=== PATIENT | male | born 1930 | race Caucasian/White ===

== ENCOUNTER 2016-07-06 10:21 | Emergency (ER) | payer MEDICARE, OTHER ==
[2016-04-22 21:02] VITALS: BMI 25.8
[~2016-07-06 10:21] MED LIST: ALDACTONE25 MG PO; ASPIRIN81 MG PO; HCTZ25 MG PO; LIPITOR80 MG PO; NORVASC5 MG PO; OMEPRAZOLE20 M1 PO; PLAVIX75 MG PO; PRINIVIL10 MG PO; XANAX0.25 MG PO
[2016-07-06 11:00] LABS: BASOPHILS 0.2 % (0.0-2.0); EOSINOPHILS 0.8 % (0-7); HEMATOCRIT 45.5 % (42.0-54.0); HEMOGLOBIN 14.3 g/dL (13.5-17.5); IMMATURE GRANULOCYTES 0.2 % (0-5); LYMPHOCYTES 43.2 % (15-50); MCH 28.7 pg (26.0-34.0); MCHC 31.4 g/dL (31.0-37.0); MCV 91.4 fL (80.0-100.0); MEAN PLATELET VOLUME 10.8 fL (7.4-10.4); MONOCYTES 4.7 % (2-11); NEUTROPHILS 50.9 % (40-80); PLATELET COUNT 140 10x3/uL (130-400); RBC 4.98 10x6/uL (4.20-6.10); RDW 14.7 % (11.5-14.5)
[2016-07-06 11:12] LABS: ALBUMIN 3.8 g/dL (3.4-5.0); ANION GAP 8.1 mmol/L (8-16); BILIRUBIN - TOTAL 1.4 mg/dL (0.2-1.3); CALCIUM 8.7 mg/dL (8.5-10.1); CARBON DIOXIDE 33.5 mmol/L (21.0-32.0); CREATININE - SERUM 1.7 mg/dL (0.6-1.3); POTASSIUM - SERUM 3.6 mmol/L (3.5-5.1)
[2016-07-06 11:21] LABS: TROPONIN-I 0.053 ng/mL (0.000-0.060)
[2016-07-06 13:51] LABS: APTT 36.8 SECONDS (22.8-39.4); INR 1.27 (0.85-1.17); PROTIME 15.8 SECONDS (11.6-15.0)
[2016-07-06 16:20] LABS: PROTEIN - BODY FLUID 2.7 G/DL
[2016-07-06 16:21] LABS: TRIGLYCERIDE - BODY FLUID 4 mg/dL
[2016-07-06 18:08] LABS: LYMPH - BF 87 %; MACROPHAGES BF 5 %; MESOTHELIALS BF 6 %; NEUT - BF 2 %
[2016-07-07 17:13] LABS: AFB SPECIMEN PROCESSING Concentration (())
[2016-07-08 12:19] LABS: FUNGUS STAIN Final report (())
[2016-08-03 11:18] LABS: FUNGUS MYCOLOGY CULTURE Final report (())
[2016-08-29 13:13] LABS: ACID FAST CULTURE Negative (()); ACID FAST SMEAR Negative (())
== END 2016-07-06 15:40 | disposition home or self-care (01) ==
LOC: D.ER 10:21
PROVIDERS: Emergency Medicine; Radiology Vascular & Interventional Radiology
DX: R06.00 Dyspnea, unspecified (principal); I50.9 Heart failure, unspecified; J90 Pleural effusion, not elsewhere classified; Z95.1 Presence of aortocoronary bypass graft; I25.10 Atherosclerotic heart disease of native coronary artery without angina pectoris; I45.10 Unspecified right bundle-branch block

== ENCOUNTER → 2016-07-06 17:11 | Outpatient (CLI) | payer MEDICARE, OTHER ==
[2016-04-22 21:02] VITALS: BMI 25.8
== END | disposition home or self-care (01) ==
LOC: D.RAD 17:11
DX: J90 Pleural effusion, not elsewhere classified (principal)

== ENCOUNTER 2016-08-10 12:46 | Emergency (ER) | payer MEDICARE, OTHER ==
[2016-04-22 21:02] VITALS: BMI 25.8
[2016-08-10 14:16] LABS: CKMB 7.7 U/L (0.0-3.6); TROPONIN-I 0.025 ng/mL (0.000-0.060)
[2016-08-10 16:17] LABS: BASOPHILS 0.2 % (0.0-2.0); EOSINOPHILS 0.6 % (0-7); HEMOGLOBIN 14.4 g/dL (13.5-17.5); IMMATURE GRANULOCYTES 0.2 % (0-5); LYMPHOCYTES 28.4 % (15-50); MCH 27.8 pg (26.0-34.0); MCHC 31.3 g/dL (31.0-37.0); MCV 88.8 fL (80.0-100.0); MEAN PLATELET VOLUME 11.4 fL (7.4-10.4); MONOCYTES 4.4 % (2-11); NEUTROPHILS 66.2 % (40-80); PLATELET COUNT 123 10x3/uL (130-400); RBC 5.18 10x6/uL (4.20-6.10); RDW 15.6 % (11.5-14.5); WBC 8.3 10x3/uL (4.8-10.8)
[2016-08-10 16:29] LABS: ANION GAP 16.1 mmol/L (8-16); BILIRUBIN - TOTAL 1.26 mg/dL (0.2-1.3); CALCIUM 9.1 mg/dL (8.5-10.1); CARBON DIOXIDE 25.9 mmol/L (21.0-32.0); CREATININE - SERUM 1.7 mg/dL (0.6-1.3); INR 1.2 (0.85-1.17); PROTEIN - SERUM 7.4 g/dL (6.4-8.2); PROTIME 15.1 SECONDS (11.6-15.0)
== END 2016-08-10 18:10 | disposition home or self-care (01) ==
LOC: D.ER 12:46
PROVIDERS: Emergency Medicine; Nurse Practitioner Family
DX: S20.219A Contusion of unspecified front wall of thorax, initial encounter (principal); V49.9XXA Car occupant (driver) (passenger) injured in unspecified traffic accident, initial encounter; Y93.89 Activity, other specified; Y92.410 Unspecified street and highway as the place of occurrence of the external cause; S16.1XXA Strain of muscle, fascia and tendon at neck level, initial encounter; S29.012A Strain of muscle and tendon of back wall of thorax, initial encounter; I45.10 Unspecified right bundle-branch block; Z95.1 Presence of aortocoronary bypass graft

== ENCOUNTER → 2017-02-10 14:46 | Outpatient (CLI) | payer MEDICARE, OTHER ==
[2016-04-22 21:02] VITALS: BMI 25.8
== END | disposition home or self-care (01) ==
LOC: D.MRI 01-27 10:00
DX: M54.2 Cervicalgia (principal)

== ENCOUNTER → 2017-03-15 11:11 | Outpatient (CLI) | payer MEDICARE, OTHER ==
[2016-04-22 21:02] VITALS: BMI 25.8
== END | disposition home or self-care (01) ==
LOC: D.MRI 11:11
DX: M54.2 Cervicalgia (principal)

== ENCOUNTER 2017-04-10 13:41 | Inpatient (IN) | payer MEDICARE, OTHER ==
[2017-04-10 16:11] LABS: BASOPHILS 0.1 % (0-2); EOSINOPHILS 0.1 % (0-7); HEMATOCRIT 48.6 % (42.0-54.0); HEMOGLOBIN 16.1 g/dL (13.5-17.5); IMMATURE GRANULOCYTES 0.3 % (0-5); LYMPHOCYTES 24.7 % (15-50); MCHC 33.1 g/dL (31.0-37.0); MCV 93.5 fL (80.0-100.0); MEAN PLATELET VOLUME 10.5 fL (7.4-10.4); MONOCYTES 6.7 % (2-11); NEUTROPHILS 68.1 % (40-80); PLATELET COUNT 142 10x3/uL (130-400); RDW 15.1 % (11.5-14.5); WBC 14.7 10x3/uL (4.8-10.8)
[2017-04-10 16:23] LABS: INR 1.13 (0.85-1.17); PROTIME 14.4 SECONDS (11.6-15.0)
[2017-04-10 16:29] LABS: ALBUMIN 3.3 g/dL (3.4-5.0); ALKALINE PHOSPHATASE 118 U/L (46-116); ALT (SGPT) 18 U/L (10-68); CALC OSMOLALITY 274 mosm/kg (275-300); CALCIUM 9.5 mg/dL (8.5-10.1); CARBON DIOXIDE 26.1 mmol/L (21.0-32.0); CHLORIDE - SERUM 100 mmol/L (98-107); POTASSIUM - SERUM 4.1 mmol/L (3.5-5.1); PROTEIN - SERUM 7.5 g/dL (6.4-8.2); SODIUM 135 mmol/L (136-145); UREA NITROGEN 21 mg/dL (7-18); eGFR NON AFRICAN AMERICAN 75 mL/min (90-120)
[2017-04-10 16:30] LABS: GLUCOSE 130 mg/dL (74-106)
[2017-04-10 16:44] LABS: CREATINE KINASE 68 UL (21-232)
[2017-04-10 16:48] LABS: TROPONIN-I 0.065 ng/mL (0.000-0.060)
--- NOTE | 2017-04-10 20:34 | NUR ---
PATIENT ARRIVED TO ROOM FROM ER VIA STRETCHER, ALERT AND ORIENTED TO CALL LIGHT AND ROOM. FAMILY AT [facility]. CALL LIGHT IN REACH.
[2017-04-11] VITALS (8 sets, daily range): BP systolic 123–178; BP diastolic 73–92; BMI 24.4; BMI 24.2
--- NOTE | 2017-04-11 04:44 | NUR ---
PT LYING IN BED, EYES CLOSED, RESPIRATIONS EVEN AND UNLABORED, CONTINUE TO MONITOR CLOSELY. BED LOW, CALL LIGHT IN REACH, SIDE RAILS X 2, HOB 25-30 DEGREES.
--- NOTE | 2017-04-11 10:04 | NUR ---
PUPILS ARE NOT EQUAL. LEFT EYE PUPIL AT 4. LEFT EYE SWOLLEN. STES HE SEES DOUBLE OUT OF THAT EYE. DR. LEES AWARE. TELEMTRY SR. LEAVING FOR MRI BY W/C.
[2017-04-11] MEDS ORDERED: K-TAB10 MEQ PO (13:14)
[2017-04-11] MEDS ORDERED: ULTRAM50 MG PO (13:14)
[2017-04-11] MEDS ORDERED: FUROSEMIDE40 MG PO (13:15)
[2017-04-11] MEDS ORDERED: COZAAR50 MG PO (13:15)
[2017-04-11] MEDS ORDERED: ATIVAN0.5 MG PO (13:16)
--- NOTE | 2017-04-11 14:40 | NUR ---
CONSENTS FOR SURGERY SINGNED.
--- NOTE | 2017-04-11 20:51 | NUR ---
PATIENT PRE-OP FOR SURGERY WITH MEDS AND EKG, PATIENT LEFT TO GO TO SURGERY AT 2049.
--- NOTE | 2017-04-11 22:59 | NUR ---
PT STILL IN SURGERY, NO FAMILY PRESENT AT THIS TIME.
[2017-04-12 00:36] VITALS: BP 167/81
[2017-04-12 04:20] VITALS: BP 172/53
--- NOTE | 2017-04-12 05:15 | NUR ---
IV INFILTRATED, NEW IV SITE IS LEFT FOREARM. CALL LIGHT IN REACH, FAMILY IS AT BEDSIDE.
[2017-04-12 05:51] LABS: BASOPHILS 0.1 % (0-2); EOSINOPHILS 0.1 % (0-7); HEMATOCRIT 46.4 % (42.0-54.0); HEMOGLOBIN 15.2 g/dL (13.5-17.5); IMMATURE GRANULOCYTES 0.4 % (0-5); LYMPHOCYTES 29.9 % (15-50); MCH 30.6 pg (26.0-34.0); MCHC 32.8 g/dL (31.0-37.0); MCV 93.5 fL (80.0-100.0); MEAN PLATELET VOLUME 10.7 fL (7.4-10.4); NEUTROPHILS 63.5 % (40-80); PLATELET COUNT 167 10x3/uL (130-400); RBC 4.96 10x6/uL (4.20-6.10); RDW 15.2 % (11.5-14.5)
[2017-04-12 06:17] LABS: C-REACTIVE PROTEIN 1.9 mg/dL (0.0-0.9); CALC OSMOLALITY 274 mosm/kg (275-300); CALCIUM 8.7 mg/dL (8.5-10.1); CARBON DIOXIDE 24.3 mmol/L (21.0-32.0); CHLORIDE - SERUM 101 mmol/L (98-107); GLUCOSE 99 mg/dL (74-106); POTASSIUM - SERUM 3.8 mmol/L (3.5-5.1); SODIUM 136 mmol/L (136-145); UREA NITROGEN 20 mg/dL (7-18); eGFR NON AFRICAN AMERICAN 75 mL/min (90-120)
--- NOTE | 2017-04-12 06:39 | NUR ---
PATIENT IS ALERT, RESTING IN BED. FAMILY AT BEDSIDE, CALL LIGHT IN REACH.
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
[2017-04-12 08:14] VITALS: BP 153/72
[2017-04-12 12:10] VITALS: BP 144/74
--- NOTE | 2017-04-12 14:25 | NUR ---
TELEMETRY SR. UP SOB WITH CALL LIGHT IN REACH. NO C/O VOICED. WILL CONT. PLAN OF CARE.
[2017-04-12 15:31] VITALS: BP 131/62
[2017-04-12 20:35] VITALS: BP 152/75
[2017-04-13 00:31] VITALS: BP 116/74
--- NOTE | 2017-04-13 02:38 | NUR ---
LYING IN BED, WILL CONTINUE WITH PLAN OF CARE. 47 SB ON TELEMETRY
[2017-04-13 04:26] LABS: BASOPHILS 0.3 % (0-2); EOSINOPHILS 1.5 % (0-7); HEMATOCRIT 43.2 % (42.0-54.0); IMMATURE GRANULOCYTES 0.7 % (0-5); LYMPHOCYTES 43.3 % (15-50); MCH 30.3 pg (26.0-34.0); MCHC 32.4 g/dL (31.0-37.0); MCV 93.5 fL (80.0-100.0); MONOCYTES 6.9 % (2-11); NEUTROPHILS 47.3 % (40-80); PLATELET COUNT 151 10x3/uL (130-400); RBC 4.62 10x6/uL (4.20-6.10); RDW 15.2 % (11.5-14.5)
[2017-04-13 04:33] LABS: WBC 10.7 10x3/uL (4.8-10.8)
[2017-04-13 05:00] LABS: ANION GAP 10.2 mmol/L (8-16); CALCIUM 8.8 mg/dL (8.5-10.1); CARBON DIOXIDE 27.9 mmol/L (21.0-32.0); POTASSIUM - SERUM 4.1 mmol/L (3.5-5.1)
[2017-04-13 05:02] LABS: CREATININE - SERUM 1.3 mg/dL (0.6-1.3)
[2017-04-13 05:33] VITALS: BP 165/67
[2017-04-13 08:00] VITALS: BP 166/85
--- NOTE | 2017-04-13 09:48 | NUR ---
TELEMETRY SR. IV PATENT. CALL LIGHT IN REACH. WILL CONT. PLAN OF CARE.
[2017-04-13 12:00] VITALS: BP 155/70
[2017-04-13 16:00] VITALS: BP 154/70
--- NOTE | 2017-04-13 16:20 | OP ---
PATIENT NAME: YANY HARRIS MEDICAL RECORD: [id number] :29 LOCATION:D. [address].2126 ADMISSION DATE:04/12/17 SURGEON: JUANY JHAVERI MD DATE OF OPERATION: 04/11/2017 PREOPERATIVE DIAGNOSIS: Left acute sphenoid sinusitis with neurologic complications, possible cavernous sinus thrombosis. POSTOPERATIVE DIAGNOSIS: Left acute sphenoid sinusitis with neurologic complications, possible cavernous sinus thrombosis. PROCEDURE: Left sphenoidotomy. SURGEON: Juany Jhaveri MD ANESTHESIA: General orotracheal. BLOOD LOSS: 2 cc. SPECIMENS: Cultures including aerobic, anaerobic, AFB fungal and path from the left sphenoid sinus. PACKING: None. COMPLICATIONS: None. DISPOSITION: Recovery, stable. FINDINGS: There was obvious purulence draining from the sphenoid ostia. There was polypoid tissue. The sphenoid ostia had been expanded significantly by this polypoid tissue and granulation. There was some solid material, but mostly just michelle yellow purulence in that sphenoid sinus. DESCRIPTION OF PROCEDURE: He was brought to the operating room and placed in supine position, sedated and intubated by anesthesia. His nose was examined using a headlight and nasal speculum injected into the left side of the nose including the uncinate root of the middle turbinate and root of the inferior turbinate with a total of less than 1 cc of 1% lidocaine with 1:100,000 epinephrine. Afrin pledgets were placed in the nose. The table was turned 90 degrees. A head drape was applied, he was positioned, prepped and draped for sinus surgery. The right side of the nose was examined first with a 0-degree scope really unremarkable. The left side was examined, the inferior turbinate was normal. He had a septal spur to the left side between the inferior middle turbinate, but it really did not obstruct the view towards the sphenoid sinus. Just after decongestion and removal of the Afrin pledgets, I could see purulence between the superior turbinate and the nasal septum posteriorly. Outfractured the inferior turbinate with a Arenac elevator, then gently outfractured the middle turbinate with a freer. There was obvious polyp sticking out, I grasped that and remove that for culture and polyp from the sphenoid ostia. Once that was done, more copious purulence was extruding. I then hooked a Luki trap and 7 suction up and just could gently probe right into that sinus and evacuated some contents for culture. Then took Tomi forceps and removed most of the polypoid tissue covering the face of the sphenoid sinus. There was a large ostia there that would easily fit 12 suction and the scope at the same time. So, once all that polypoid tissue was made, there was plenty of bony opening, I continued to OPERATIVE REPORT [id number] YANY HARRIS remove this polypoid tissue from both pass and cultures, and then again got a Luki trap and get back there with a 9 suction and removed some of the solid material for path and cultures as well in case some of that was some fungal material. Once all the specimens were obtained, I put the scope directly in the sinus, just granular changes to the mucosa throughout. I then placed a straight suction Kay tip suction with a 10 cc syringe and saline, and irrigated the sinus repeatedly, got some purulence out there and looked back in there with the scope and it was clean. There was really no more tissue or material loose in that sinus to clean out. Then, with 1 cc syringe and the Kay tip suction, filled the sphenoid sinus with mupirocin. There was really no significant bleeding. Suctioned out the nose. After the counts were correct, all Afrin pledgets were out, the nose looked good, there was really no bleeding. He was awakened, extubated, and transported to recovery in good condition. No complications. TRANSINT:[id number] Voice Confirmation ID: [id number] DOCUMENT ID: [id number] JUANY JHAVERI MD at 1620 CC: [id number] DICTATION DATE: 04/11/17 231 ACT TUTOR: 04/12/17 0108 ADM IN [facility] [address] [place] [address]
--- NOTE | 2017-04-13 16:20 | CN ---
PATIENT NAME:YANY CONNOLLY MEDICAL RECORD: [id number] : 29 LOCATION:[facility] D.2126 ADMIT DATE: 04/12/17 ACCOUNT: [id number] CONSULTING PHYSICIAN: JUANY STEPHENS MD REFERRING PHYSICIAN: FORTINO DUARTE DO DATE OF CONSULTATION: 04/11/2017 Otolaryngology Consultation HISTORY OF PRESENT ILLNESS: Mr. Connolly is an 87-year-old male. He has been having some problems with some headaches over the past couple of months, but then yesterday, he started having some visual problems. His noticed his eye drooping. He was having double vision, trouble seeing out of his left eye. He presented and he has been admitted to the hospital with headache and these eye changes. He had a CT done that showed a left sphenoid sinusitis and osteitis, and I was called to see him. He has not had any fevers. He really does not have any complaint of fever, chills, URI symptoms or really any sinonasal symptoms at all. No obstruction, no drainage, no bleeding. He has had a headache in the occipital region and then he had the eye symptoms. He said 2 days ago the eye was fine, and then yesterday morning started having the symptoms of the eye drooping first and then the double vision. He has not had any other neurologic symptoms. He does have a cardiac history including a couple of bypass surgeries and mitral valve issue that was fixed through endovascular technique last year. His vital signs, he has not had any fever. His labs show a white count of 14,500; mostly neutrophils. His CT, I looked at the CT and the left sphenoid sinus was larger. There is bone thickening and changes consistent with a chronic left sphenoid sinusitis and kind of a heterogenous material in there compared to the MRI as well. I cannot see any obvious changes. MRI had not been read yet, but I did not see anything obvious around the cavernous sinus or any enhancement on the brain or dura that was too significant. It mainly seemed to be the left sphenoid sinus. PHYSICAL EXAMINATION: GENERAL: He is alert and oriented, completely intact mentally. Good historian. A little bit of trouble hearing, but that is all. FACE: He has got normal symmetric facial function. EYES: He does have significant ptosis covering the entire iris of the left eye. When I opened his eye, his pupil is obviously large, 2 mm on the right and 5 on the left. Left pupil is nonreactive. The gaze is not conjugate. 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 He could look down and to the right just a little bit and find an area where he did not have diplopia. As far as vision with that left eye, it was definitely decreased but he felt like he could see. He could identify 2 or 3 fingers at about 3 feet away, but he definitely felt like there was a decrease in his vision. On exam of the fundus, he felt like he had some mild papilledema, but not too much. The rest of the retina looked normal. EARS: Canals and TMs are normal. No middle ear effusions. NOSE: No masses, polyps or visible drainage. He had a left septal spur. ORAL CAVITY AND OROPHARYNX: No trismus. Tongue protrudes in the midline. NECK: No masses, no adenopathy. Supple. Nontender. NEUROLOGIC: His cranial nerves, other than III on the left side, completely intact. IMPRESSION: Left sphenoid sinusitis. There were some chronic changes on CT, but he definitely has some acute changes, very worrisome for cavernous sinus CONSULT REPORT [id number] YANY CONNOLLY thrombosis. He has not been n.p.o. I am going to have ID see him, have anesthesia see him, and talk to his and him about the prognosis and the severity of infection even though it is early on and he is not having too much problems right now. This is a very serious issue. I would not take him right now because of his n.p.o. status and his cardiac history, but I want to get things sorted out and get him to the OR urgently today. TRANSINT:[id number] Voice Confirmation ID: [id number] DOCUMENT ID: [id number] JUANY STEPHENS MD at 1620 CC: [id number] DICTATION DATE: 04/11/17 230 SHEEP STICKER: 04/11/17 2341 ADM IN [place] [place] [address]
[2017-04-13 19:11] LABS: AFB SPECIMEN PROCESSING Tissue Grinding (())
[2017-04-13 21:38] VITALS: BP 153/73
[2017-04-14 01:53] VITALS: BP 158/79
--- NOTE | 2017-04-14 02:27 | NUR ---
LYING IN BED, CALL LIGHT IN REACH. WILL CONTINUE WITH PLAN OF CARE. 52 SB ON TELEMETRY
[2017-04-14 04:16] VITALS: BP 190/101
--- NOTE | 2017-04-14 04:42 | NUR ---
PATIENTS IV INFILTRATED, NEW IV SITE RIGHT FOREARM. PATIENT TOLERATED WELL. CALL LIGHT IN REACH.
[2017-04-14 08:03] VITALS: BP 179/91
[2017-04-14] MEDS ORDERED: CIPRO500 MG PO (08:20)
[2017-04-14 10:19] LABS: FUNGUS STAIN Final report (())
[2017-04-14] MEDS ORDERED: CLEOCIN HCL300 MG PO (11:22)
--- NOTE | 2017-04-14 12:07 | NUR ---
IV AND TELEMETRY DCD. DC PLANS GIVEN. UNDERSTANDING VOICED. ESCORTED TO CAR BY W/C.
--- NOTE | 2017-04-14 14:17 | NUR ---
LATE ENTRY: 04/06/17 @ 0930 Patient Name: YANY HARRIS Admission Status: ER Accout number: [id number] Admission Date: 04-12-2017 : 1929 Admission Diagnosis: Attending: FORTINO DUARTE Current LOS: 2 Anticipated DC Date: 04-14-2017 Planned Disposition: Primary Insurance: MEDICARE A & B Discharge Planning Comments: CM MET WITH PATIENT TO DISCUSS DISCHARGE NEEDS. PATIENT RESIDES AT HOME WITH HIS SPOUSE THAT DOES NOT DRIVE. HIS SON WILL PICK HIM UP, BU THIS NUMBER IS IN THE CELL PHONE AND IT IS . HE SAID HE JUST GOT OF THE PHONE WITH HIM AND HE WAS COMING TO PICK HIM UP. HE HAS A WALKER AT HOME THAT HE STATED HE ONLY USES ONCE IN A WHILE. HE RECEIVES BENEFITS FROM THE [place]. WHEN QUESTIONED TO WHAT BENEFITS HE RECEIVES, HE SAID "WELL RIGHT NOW THEY ARE GETTING ME SOME HEARING AIDES". HE DENIES HOME HEALTH OR ANY COMMUNITY RESOURCES. DENIES THE NEED FOR ANY NEEDS AT TIME OF DISCHARGE. I HAVE MADE MYSELF AVAILABLE IN CASE HE WERE TO THINK OF ANYTHING HE MAY NEED BEFORE HE LEAVES TODAY. Executive Steward: Mariela Farnsworth Is the patient Alert and Oriented? Yes * How many steps to enter\\exit or inside your home? 0 * PCP DR FORTINO DUARTE * Pharmacy [facility] ON [facility] * Preadmission Environment Home with Family * ADLs Independent * Equipment Walker * List name and contact numbers for known caregivers / representatives who currently or will assist patient after discharge: JULIANNE SCHAFFER, SON * Community resources currently utilized [facility] * Additional services required to return to the preadmission environment? No * Can the patient safely return to the preadmission environment? Yes * Has this patient been hospitalized within the prior 30 days at any hospital? No
--- NOTE | 2017-04-19 07:54 | DS ---
PATIENT:YANY HARRIS :29 MEDICAL RECORD: [id number] DISCHARGE SUMMARY ADMISSION DATE: 04/12/17 DISCHARGE DATE: 04/14/17 An 87-year-old male. ADMISSION DIAGNOSES: Severe cephalgia. Left ptosis. Left sphenoid sinusitis, osteitis. Elevated cardiac enzymes. DISCHARGE DIAGNOSES: Cephalgia, resolved. Ptosis, improved. Left sphenoid sinusitis and osteitis, status post sphenoidotomy. CONSULTS: Cardiology for surgical clearance. ENT, Dr. Jhaveri and subsequent infectious disease consult. PROCEDURES: CT of the head. MRI of the head. Sphenoidotomy. HOSPITAL COURSE: The patient underwent urgent sphenoidotomy. He was started on empiric antibiotics. White count normalized. Status post surgery and antibiotic therapy, the patient remains afebrile. Headache has resolved. Cultures and sensitivity back with pseudomonas sensitive to ciprofloxacin. The patient is anxious to be discharged. Discharged home in significantly improved condition. We will continue ciprofloxacin b.i.d. for 2 weeks, probiotics. He will follow up in the clinic in 2 weeks. He will follow up with Dr. Jhaveri. PHYSICAL EXAMINATION: VITAL SIGNS ON DISCHARGE: Temperature 98.1, blood pressure 179/91, heart rate 70, respirations 20. Blood pressure primarily in the 150s. We will recheck prior to discharge and will follow up in the clinic for blood pressure check as well. LABORATORY DATA: CBC on discharge: White count 10.7, hemoglobin 14, hematocrit 43.2, platelets 151. The patient discharged in significantly improved condition. Follow up as above and as scheduled. TRANSINT:[id number] Voice Confirmation ID: [id number] DOCUMENT ID: [id number] FORTINO DUARTE DO at 0754 CC: [id number] DICTATION DATE: 04/14/17 0827 NUCLEAR WASTE PROCESS OPERATOR: 04/14/17 0913 DIS IN 04/14/17 [place] [id number] [place] [address]
--- NOTE | 2017-04-19 10:07 | EC ---
PATIENT:YANY HARRIS DATE OF SERVICE: 04/10/17 SEX: M MEDICAL RECORD: [id number] DATE OF : 29 LOCATION:D. D.212 AGE OF PATIENT: 87 ADMISSION DATE: 04/12/17 REFERRING PHYSICIAN: INTERPRETING PHYSICIAN: LETICIA DENISE MD ECHOCARDIOGRAM REPORT ECHO CHARGES 4 ECHO COMPLETE CLINICAL DIAGNOSIS: ELV. TROPONIN HX OF MV REPAIR NEW PROCEDURE PICK/CAD/CABG ECHOCARDIOGRAPHIC MEASUREMENTS (adult normal given) AC root (d.<3.7cm) 3.4 cm LV Septum d (<1.2 cm> 1.3 cm Valve Excursion 4.9 cm LV Septum (systole) 1.4 cm Left Atria (s.<4.0cm> 5.4 cm LVPW d(<1.2cm) 1.4 cm RV (d.<2.3cm) 5.9 cm LVPW (sytole) 1.7 cm LV diastole(<5.6CM) 6.6 cm MV E-F(>70mm/sec) cm LV systole 5.4 cm LVOT Diameter 2.0 cm MV exc.(>10mm) 0.90 cm Est.ejection fraction (50-75%) % Pericardial Effusion N DOPPLER: LVIT cm/sec A 79.0 cm/sec E 91.0 cm/sec LA cm/sec RVSP 75 mmHg LVOT 80 cm/sec AOP1/2T 739 m/s Asc. Ao 150 cm/sec RVOT cm/sec RA cm/sec PA 108 cm/sec AV Gradient Peak 9.05 mmHg AV Mean 3.50 mmHg AV Area 1.6 cm MV Gradient Peak 7.10 mmHg MV Mean 1.74 mmHg MV Area cm COMMENTS: Parking Attendant: 2 KAL JOSE Genetic Scientist: Carmela Denise TAPE# PACS DATE OF SERVICE: 04/11/2017 PROCEDURE: Transthoracic echocardiogram. FINDINGS: 1. Left ventricle is dilated. There is global wall motion abnormalities. The overall ejection fraction is 25%. 2. The left atrium is severely dilated. 3. The aortic valve is shown to have mild aortic insufficiency. There is no significant stenosis. There appears to be some thickening around the aortic ECHOCARDIOGRAM REPORT [id number] YANY HARRIS valve leaflets. 4. The mitral valve has severe mitral regurgitation that is eccentric. 5. Tricuspid valve: Severe tricuspid regurgitation. RVSP is 75 mmHg. 6. 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 7. The right ventricle and right atrium are moderately to severely dilated. The right ventricle is severely dilated, mildly hypokinetic. 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 TRANSINT:[id number] Voice Confirmation ID: [id number] DOCUMENT ID: [id number] 04/17/2017 Edited to correct date of service, dm. LETICIA DENISE MD at 1007 CC: [id number] DICTATION DATE: 04/12/17 0721 ELECTRIC INSTALLER: 04/12/17 0911 DIS IN 04/14/17 [place] [id number] [place] [address]
[2017-04-20 17:12] LABS: AEROBE ID Final report (())
[2017-05-10 08:21] LABS: FUNGUS MYCOLOGY CULTURE Final report (())
[2017-06-02 11:17] LABS: ACID FAST CULTURE Negative (()); ACID FAST SMEAR Negative (())
== END 2017-04-14 12:07 | disposition home or self-care (01) | DRG 133 ==
LOC: D.ER 13:41 → D.M2 19:01 → OBSVTIME 19:01 → D.M2 19:01
PROVIDERS: Family Medicine; Nurse Practitioner Family; Otolaryngology; ADMIT Family Medicine
PROC: 09SL8ZZ Reposition Nasal Turbinate, Via Natural or Artificial Opening Endoscopic (ICD-10-PCS; 2017-04-11)
PROC: 09CX8ZZ Extirpation of Matter from Left Sphenoid Sinus, Via Natural or Artificial Opening Endoscopic (ICD-10-PCS; principal; 2017-04-11 21:41)
DX: J01.30 Acute sphenoidal sinusitis, unspecified (principal); M86.9 Osteomyelitis, unspecified; H02.402 Unspecified ptosis of left eyelid; I25.10 Atherosclerotic heart disease of native coronary artery without angina pectoris; Z95.1 Presence of aortocoronary bypass graft; E78.5 Hyperlipidemia, unspecified; F41.9 Anxiety disorder, unspecified; I11.0 Hypertensive heart disease with heart failure; I50.9 Heart failure, unspecified; R51 Headache